=== PATIENT | male | born 1975 | race Caucasian/White ===

== ENCOUNTER 2022-06-24 13:58 | Outpatient (CLI) | payer OTHER, SELFPAY ==
[2022-06-24 16:00] LABS: Alanine Aminotransferase 37 U/L (6-50); Albumin Level 4.4 g/dL (3.5-5.1); Alkaline Phosphatase 69 U/L (38-126); Anion Gap 6 mmol/L (8-16); Aspartate Amino Transferase 34 U/L (17-59); Bilirubin,Total 0.4 mg/dL (0.2-1.3); Blood Urea Nitrogen 14 mg/dL (9-20); Calcium 8.9 mg/dL (8.4-10.2); Carbon Dioxide 30 mmol/L (22-30); Chloride 101 mmol/L (98-107); Cholesterol 242 mg/dL (0-200); Estimated Glomerular Filt Rate > 60; Glucose 80 mg/dL (65-110); HDL Direct 29 mg/dL; Potassium 3.7 mmol/L (3.4-5.0); Sodium 137 mmol/L (137-145); Triglycerides 460 mg/dL (<150)
[2022-06-24 16:11] LABS: LDL Cholesterol Direct 103 mg/dL
[2022-06-30 11:41] LABS: Testosterone Total 338 ng/dL (250-1100)
[2022-06-30 11:54] LABS: Testosterone Free 74.4 pg/mL (46.0-224.0)
== END 2022-06-24 13:59 | disposition home or self-care (01) ==
PROVIDERS: PCP Family Medicine; Visit Provider Family Medicine
DX: R79.89 Other specified abnormal findings of blood chemistry (principal); Z13.220 Encounter for screening for lipoid disorders; Z13.228 Encounter for screening for other metabolic disorders
CPT/HCPCS: 36415; 80053; 80061; 84402; 84403; 84443

== ENCOUNTER 2024-06-16 03:48 | Day surgery (SDC) | payer OTHER, SELFPAY ==
[2024-04-06 14:31] VITALS: BMI 29.1
[2024-05-06 13:47] VITALS: BMI 29.1
--- NOTE | 2024-05-06 13:48 | PC.NURSE ---
Patient updated on new date and time for procedure. Instructions for bowel prep discussed.
--- NOTE | 2024-05-26 14:55 | PC.NURSE ---
Pt called and updated with date/time of procedure. Prior interview completed on 05/06/24. Pt states no changes in medical hx since prior interview. Pt states he has instructions and has no further questions.
--- NOTE | 2024-06-15 19:01 | P.PNAN_ITS ---
Anes - Eval Pre Procedure Procedure: Operation Date: 06/16/24 10:30 Proposed Procedures p Screening Colonoscopy - Ha Underwood MD Date/Time: 06/15/24 19:01 Surgeon: Yasmine Pre Op Diagnosis: screening neoplasm colon Patient Data Age: 48 Gender: M Height: 1.83 m Weight: 97.5 kg Allergies Allergy/AdvReac Type Severity Reaction Status Date / Time No Known Allergies Allergy Verified 05/06/24 13:46 Home Medications Medication Instructions Recorded Confirmed Type lamotrigine 100 mg tablet 100 mg PO BID #60 tabs 12/03/23 05/06/24 Rx bupropion HCl 300 mg 24 hr tablet, 300 mg PO DAILY #90 tabs 01/18/24 05/06/24 Rx extended release buspirone 5 mg tablet 5 mg PO BID #120 tabs 03/01/24 05/06/24 Rx Patient hx anesthesia problems: none Family hx anesthesia problems: none Results Review: All pre-operative results and documents have been reviewed as part of the pre- operative evaluation. [facility], LAT[facility] Past Medical History Medical History Depression with anxiety Family History Family History Father Family history of hypercholesterolemia Alzheimer disease Grandparent Family history of hypercholesterolemia Alzheimer disease Mother Patient's mother is in good health Social History Social History Smoking status: Never smoker Alcohol intake: never Substance use: never Substance use type: does not use Lack of Transportation: No Lack of Food: Never True Current Housing: I Have Housing Concerned About Future Housing: No Difficulty Paying Gas/Electric Bills: No Difficulty Paying for Meds: No Currently Unemployed: No Education: Bachelor's Degree Living arrangements: with family Spiritual care concerns: No Exam Day of Procedure 06/15/24 19:01
[2024-06-16 08:50] VITALS: BP 133/92; PULSE 110; RESP 18; TEMP 36.1; O2SAT 100; BMI 28.9
[2024-06-16] MEDS: LACTATED RINGERS 1,000 ML 150 ML IV CONT (08:58)
--- NOTE | 2024-06-16 09:11 | P.PNAN_ITS ---
Anes - Eval Final PreProcedure Day of Procedure 06/16/24 09:11 Patient weight: overweight Heart: regular rate and rhythm Lungs: clear to auscultation Airway: Mallampati scale class II Neurological: alert and oriented Last oral intake: >/= 8 hours ASA classification: II Emergent: no Anesthetic plan: proceed Anesthesia type and monitoring: general GIVS and standard monitoring Results Review: All pre-operative results and documents have been reviewed as part of the pre- operative evaluation. Informed Consent: The patient's anesthetic plan and its attendant risks and benefits were discussed with the patient/family/POA. Questions were solicited and answers provided to the satisfaction of the patient/family/POA.
--- NOTE | 2024-06-16 09:28 | P.HP_ITS ---
H&P: HPI History of Present Illness Date/Time: 06/16/24 09:28 Chief Complaint: Screening colonoscopy Narrative: This is the patient's first colonoscopy. There are no GI symptoms and there is no family history of colorectal cancer. Review of Systems Review of Systems: All systems reviewed & are unremarkable except as noted in HPI and below PMFSH Past Medical History Medical History (Updated 06/16/24 @ 09:29 by Ha Underwood MD) Depression with anxiety Family History Family History Father Family history of hypercholesterolemia Alzheimer disease Grandparent Family history of hypercholesterolemia Alzheimer disease Mother Patient's mother is in good health Social History Social History Smoking status: Never smoker Alcohol intake: never Substance use: never Substance use type: does not use Lack of Transportation: No Lack of Food: Never True Current Housing: I Have Housing Concerned About Future Housing: No Difficulty Paying Gas/Electric Bills: No Difficulty Paying for Meds: No Currently Unemployed: No Education: Bachelor's Degree Living arrangements: with family Spiritual care concerns: No Meds Home Medications and Allergies Home Medications Medication Instructions Recorded Confirmed Type lamotrigine 100 mg tablet 100 mg PO BID #60 tabs 12/03/23 06/16/24 Rx bupropion HCl 300 mg 24 hr tablet, 300 mg PO DAILY #90 tabs 01/18/24 06/16/24 Rx extended release buspirone 5 mg tablet 5 mg PO BID #120 tabs 03/01/24 06/16/24 Rx Allergies Allergy/AdvReac Type Severity Reaction Status Date / Time No Known Allergies Allergy Verified 06/16/24 08:49 Vital Signs Vital Signs - 24 hr 06/16/24 08:50 Temperature 97.0 F L Pulse Rate 110 H Respiratory Rate 18 Blood Pressure 133/92 H Pulse Oximetry 100 Oxygen Delivery Room Air Exam Const: General: cooperative and healthy appearing Resp: Effort & Inspection: normal respiratory effort and able to speak in c omplete sentences Auscultation: clear to auscultation bilaterally Cardio: Rate: regular rate Rhythm: regular rhythm GI: Inspection: normal to inspection GI Palp: No No hepatosplenomegaly present Auscultation: normal bowel sounds Rectal Exam: deferred Skin: General skin exam: normal color Psych: Appearance: grossly normal Mental Status: mental status grossly normal Assessment and Plan Assessment and plan (1) Screening for malignant neoplasm of colon: Code(s): Z12.11 - Encounter for screening for malignant neoplasm of colon Status: Acute Assessment and Plan: The patient is deemed a good candidate for the procedure. Consent signed. Will proceed.
[2024-06-16 09:57] VITALS: BP 97/66; PULSE 88; RESP 22; O2SAT 97
[2024-06-16 10:07] VITALS: BP 99/66; PULSE 83; RESP 15; O2SAT 97
[2024-06-16 10:17] VITALS: BP 118/88; PULSE 84; RESP 18; O2SAT 98
== END 2024-06-16 10:35 | disposition home or self-care (01) ==
PROVIDERS: PCP Family Medicine; Visit Provider Internal Medicine Gastroenterology
PROC: 0DJD8ZZ Inspection of Lower Intestinal Tract, Via Natural or Artificial Opening Endoscopic (ICD-10-PCS; CPT 45378; principal; 2024-06-16 09:30)
DX: Z12.11 Encounter for screening for malignant neoplasm of colon (principal); K57.30 Diverticulosis of large intestine without perforation or abscess without bleeding; F41.8 Other specified anxiety disorders
CPT/HCPCS: 45378; J2003; J2704; J7120

== ENCOUNTER 2024-11-12 18:56 | Emergency (ER) | payer OTHER, SELFPAY ==
--- NOTE | 2024-11-12 19:06 | ED_ITS ---
HPI - Dental/Oral General Chief complaint: Dental/Oral Stated complaint: JAW PAIN Time Seen by Provider: 11/12/24 19:06 Source: patient Mode of arrival: ambulatory Limitations: no limitations History of Present Illness HPI Narrative: 49 yo M presents presents with L lower dental pain for 1 to 2 days with mild swelling. pain with biting down. Does have a denitst but has not called for appt. All systems reviewed and negative except as noted above. Related Data Allergies Allergy/AdvReac Type Severity Reaction Status Date / Time No Known Allergies Allergy Verified 11/12/24 19:06 Review of Systems Review of Systems: CONSTITUTIONAL: Denies fever, chills, or sweats. EYES: Denies visual changes, redness, or discharge. ENT: Denies rhinorrhea, congestion, sore throat, or otalgia. Reports left lower dental pain with swelling. CARDIOVASCULAR: Denies chest pain, palpitations, or edema. RESPIRATORY: Denies cough or dyspnea. GASTROINTESTINAL: Denies abdominal pain, nausea, vomiting, or diarrhea. GENITOURINARY: Denies dysuria or hematuria. SKIN: Denies rash or itching. MUSCULOSKELETAL: Denies back pain, joint pain, or myalgia. NEUROLOGIC: Denies headache, numbness, or weakness. PSYCHIATRIC: Denies anxiety or depression. All other systems reviewed are negative, except as documented in HPI. [facility] Past Medical History Medical History (Updated 11/12/24 @ 19:12 by Lizeth uRcker NP) Depression with anxiety Family History Family History Father Family history of hypercholesterolemia Alzheimer disease Grandparent Family history of hypercholesterolemia Alzheimer disease Mother Patient's mother is in good health Social History Social History Smoking status: Never smoker Alcohol intake: never Substance use: never Substance use type: does not use Lack of Transportation: No Lack of Food: Never True Current Housing: I Have Housing Concerned About Future Housing: No Difficulty Paying Gas/Electric Bills: No Difficulty Paying for Meds: No Currently Unemployed: No Education: Bachelor's Degree Living arrangements: with family Spiritual care concerns: No Comments At time of signature, agree with nursing past medical, surgical, social and family history. There is no relevant family history pertinent to the presenting complaint. Exam Narrative: GENERAL: This is a well-nourished, well-developed patient, in no apparent distress. HEAD: normocephalic, atraumatic. EYES: PERRL. Sclera clear/white. Vision is grossly intact. EARS: External ears normal NOSE: External nose normal MOUTH: tenderness to tooth 16, small fluctuant erythematous abscess noted NECK: Neck supple, non-tender without lymphadenopathy, masses or thyromegaly. CARDIOVASCULAR: Regular rate and rhythm without murmurs, gallops, or rubs. RESPIRATORY: Clear to auscultation. Breath sounds equal bilaterally. No wheezes, rales, or rhonchi. SKIN: warm, Dry, intact with no suspicious lesions or rash, good texture and turgor. NEURO: awake, alert, and oriented to person, place and time. There were no obvious focal neurologic abnormalities. EXTREMITIES: No joint tenderness, effusion, or edema noted. Course Course Level of Care: Express Care Visit Vital Signs Vital signs: Reviewed MDM - Dental/Oral MDM Narrative Medical decision making narrative: Small dental abscess noted. Afebrile. Alert, nontoxic. Will prescribe clindamycin. Recommend follow-up with primary care physician. Please be advised this is a medical document. It is intended for [id number] communication. It is written in medical language and may contain unfamiliar abbreviations or verbiage. Medical documents are intended to carry relevant information, facts as evident, and the clinical opinion of the practitioner at the time of the encounter. This report may have been done utilizing a voice recognition system. Attempts have been made to correct errors. However, there may be uncorrected grammatical, spelling, and recognition errors present. The file time of this note does not necessarily represent the time of service. Discharge Plan Discharge Clinical Impression: Dental abscess Patient Disposition: Home Condition: Stable Instructions: Antibiotic Form, Dental Abscess (ED) Additional Instructions: Take antibiotic as prescribed until gone. Alternate between ibuprofen and Tylenol every 4 hours to treat pain. Apply over the counter Orajel as directed on packaging to treat pain. Follow-up with dentist at next available appointment. Patient Language: [place]al[place] Prescriptions: New clindamycin HCl [Cleocin HCl] 300 mg capsule 300 mg PO QID 10 Days Qty: 40 0RF No Action lamotrigine 100 mg tablet 100 mg PO BID Qty: 60 5RF buspirone 5 mg tablet 5 mg PO BID Qty: 120 1RF bupropion HCl 300 mg tablet extended release 24 hr 300 mg PO DAILY Qty: 90 1RF Follow-up/Referrals: Marguerite Dickson NP [Primary Care Provider] - Time of Disposition: 19:13
[2024-11-12 19:07] VITALS: BP 151/98; PULSE 106; RESP 16; TEMP 36.1; O2SAT 99
== END 2024-11-12 19:17 | disposition home or self-care (01) ==
PROVIDERS: Emergency Provider Nurse Practitioner Family; PCP Nurse Practitioner
DX: K04.7 Periapical abscess without sinus (principal); F41.8 Other specified anxiety disorders
CPT/HCPCS: 99213; G0463

== ENCOUNTER 2024-11-15 09:30 | Outpatient (CLI) | payer OTHER, SELFPAY ==
[2024-11-15 12:41] LABS: Basophils Absolute Auto 0.1 K/mm3 (0.0-0.1); Basophils Percent Auto 0.9 % (0.2-1.2); Eosinophils Absolute Auto 0.3 K/mm3 (0-0.3); Eosinophils Percent Auto 3.9 % (0-4.4); Hemoglobin 14.4 g/dL (14.0-18.0); Immature Granulocyte Absolute 0.01 K/mm3 (0.00-0.031); Immature Granulocyte Percent A 0.1 % (0-0.5); Lymphocytes Absolute Auto 2.26 K/mm3 (0.9-3.2); Lymphocytes Percent Auto 32.7 % (18.3-44.2); Mean Corpuscular HGB Conc 32.7 g/dl (32-36); Mean Corpuscular Hemoglobin 29.1 pg (26-34); Mean Corpuscular Volume 89.1 fl (80-100); Mean Platelet Volume 10.3 fl (7.4-10.4); Monocytes Absolute Auto 0.7 K/mm3 (0.1-0.6); Monocytes Percent Auto 10.3 % (2.6-8.5); Neutrophils Absolute Auto 3.6 K/mm3 (1.3-6.7); Neutrophils Percent Auto 52.1 % (45.5-73.1); Platelet Count Result 227 k/mm3 (150-375); Red Blood Count 4.94 M/mm3 (4.6-6.20); Red Cell Distribution Width 13.2 % (11.5-14.5); White Blood Count 6.9 K/mm3 (4.5-10.0)
[2024-11-15 12:53] LABS: Alanine Aminotransferase 124 U/L (6-50); Albumin Level 4.2 g/dL (3.5-5.1); Alkaline Phosphatase 75 U/L (38-126); Anion Gap 8 mmol/L (4-12); Aspartate Amino Transferase 108 U/L (17-59); Bilirubin,Total 0.5 mg/dL (0.2-1.3); Blood Urea Nitrogen 17 mg/dL (9-20); Calcium 8.9 mg/dL (8.4-10.2); Carbon Dioxide 29 mmol/L (22-30); Chloride 103 mmol/L (98-107); Cholesterol 236 mg/dL (0-200); Estimated Glomerular Filt Rate 58; Glucose 89 mg/dL (65-110); HDL Direct 31 mg/dL; Potassium 3.8 mmol/L (3.4-5.0); Sodium 140 mmol/L (137-145); Triglycerides 288 mg/dL (<150)
[2024-11-15 13:09] LABS: LDL Cholesterol Direct 128 mg/dL
[2024-11-15 13:27] LABS: Prostate Specific Antigen 0.8 ng/mL (< OR = 4.0)
== END 2024-11-15 09:31 | disposition home or self-care (01) ==
LOC: ANHGOSHLAB 09:32
PROVIDERS: PCP Internal Medicine; Visit Provider Nurse Practitioner
DX: E78.2 Mixed hyperlipidemia (principal); Z12.5 Encounter for screening for malignant neoplasm of prostate; Z13.228 Encounter for screening for other metabolic disorders
CPT/HCPCS: 36415; 80053; 80061; 84153; 85025; G0103